=== PATIENT | female | born 1985 | race Caucasian/White ===

== ENCOUNTER 2017-07-14 13:10 | Inpatient (IN) ==
--- NOTE | 2017-07-14 13:28 | Emergency Department Note ---
Disposition Clinical Impression: Ectopic without intrauterine Qualifiers: Location of ectopic : unspecified location Qualified Code(s): O00.90 - Unspecified ectopic without intrauterine Disposition: Admitted As Inpatient Condition: Fair Instructions: Ectopic (ED) Referrals: NONE,PCP [Primary Care Provider] - Jose Patiño [Family Provider] - Forms: ED Satisfaction Letter Time of Disposition: 16:23 Female Urogenital HPI - General Chief complaint: ED Vaginal Bleeding Stated complaint: 10weeks preg/Vag Bleed Time Seen by Provider: 07/14/17 13:21 Source: patient Mode of arrival: ambulatory Limitations: no limitations Nursing Notes Reviewed: Yes Vital Signs Reviewed: Yes - History of Present Illness HPI Narrative: 31-year-old states she is about 9 weeks who developed of bleeding. Patient did have bleeding at 5 weeks was seen at another ER had an ultrasound and is scheduled to follow up with her FAMILY PRACTICE NURSE PRACTITIONER in [place]. Pt Subjective Complaint: vaginal bleeding Onset (ago): hour(s) (This a.m.) Location: suprapubic Radiation: non-radiating Severity: mild Quality: cramping Duration: intermittent Improves with: none Worsens with: none Vaginal discharge: dark blood Sexual activity: yes : yes Associated symptoms: Reports: abnormal vaginal bleeding, abdominal pain - Related Data Allergies Allergy/AdvReac Type Severity Reaction Status Date / Time No Known Allergies Allergy Verified 07/14/17 13:13 All systems ED: reviewed and negative except as stated. Constitutional: Denies: fever, chills, weakness, weight change Eyes: Denies: eye pain, eye discharge, vision change ENT ED: Denies: ear pain, throat pain, dental pain, hearing loss, epistaxis, congestion, dysphagia Cardiovascular: Denies: chest pain, palpitations, dyspnea on exertion, edema, syncope Respiratory: Denies: cough, dyspnea, wheezes, hemoptysis, stridor Gastrointestinal: Reports: abdominal pain. Denies: nausea, vomiting, diarrhea, constipation, hematemesis, melena, hematochezia Genitourinary: Reports: other (Vaginal bleeding). Denies: dysuria, frequency, hematuria, discharge Musculoskeletal: Denies: back pain, neck pain, arthralgia, myalgia Integumentary: Denies: rash, abrasion, lesions Neurological: Denies: headache, weakness, numbness, paresthesias, confusion, abnormal gait, vertigo Psychiatric: Denies: anxiety, depression, suicidal thoughts, homicidal thoughts , auditory hallucinations, visual hallucinations Endocrine: Denies: fatigue Hematological/Lymphatic: Denies: easy bleeding, easy bruising Allergic/Immunologic: Denies: facial swelling, urticaria Past Medical History - Past Medical History Medical history: Reports: no medical history Psychiatric history: Reports: anxiety, depression FAMILY PRACTICE NURSE PRACTITIONER history: Reports: no FAMILY PRACTICE NURSE PRACTITIONER history : 3 Para: 2 Ab: 0 - Social History Smoking Status: Current every day smoker Smokeless Tobacco Status: No Alcohol use: Reports: none Drug use: Reports: none Physical Exam - General Limitations: no limitations General appearance: alert - Head Head exam: atraumatic, normocephalic, normal inspection - Eye Eye exam: Present: normal appearance, PERRL, EOMI - ENT ENT exam: normal exam, normal oropharynx, mucous membranes moist - Neck Neck exam: Present: normal inspection, full ROM, trachea midline - Chest Chest inspection: Present: normal inspection, symmetric chest wall rise - Respiratory Respiratory exam: Present: normal lung sounds bilaterally - Cardiovascular Cardiovascular exam: Present: regular rate, normal rhythm, normal heart sounds - Abdominal Exam Abdominal exam: Present: soft, Non-Tender. Absent: tenderness, distention, guarding, rebound, rigidity - Extremities Exam Extremities exam: Present: normal inspection, full ROM. Absent: tenderness, pedal edema - Expanded Lower Extremity Exam Neurovascular/Tendon exam: Absent: motor deficit, sensory deficit, tendon deficit Gait: observed and normal - Back Exam Back exam: Present: normal inspection, full ROM. Absent: tenderness - Neurological Exam Neurological exam: Present: alert, oriented X3 - Psychiatric Psychiatric exam: Present: normal affect, normal mood - Skin Skin exam: Present: warm, dry, intact, normal color Course - Reevaluation(s) Reevaluation #1: 31-year-old who comes in with bleeding and was found to have a fairly large right adnexal mass with the a ectopic with heartbeat. OB came down and saw the patient they will take her to the OR for surgery. Time: 17:00 - Consultations Consultation #1: Dr Esquivel radiology ectopic on the right. Time: 16:03 Consultation #2: Discussed with Sarah Beth Castillo, admit. Time: 16:05 Consultation #3: RebeccamYing called indicating that Dr. Ramires will be down to see the patient. Time: 16:36 Vital Signs Temperature 98 F 07/14/17 13:13 Pulse Rate 97 07/14/17 13:13 Respiratory Rate 20 07/14/17 13:13 Blood Pressure 112/68 07/14/17 13:13 O2 Sat by Pulse Oximetry 97 07/14/17 13:13 Temperature 98 F 07/14/17 13:13 Pulse Rate 74 07/14/17 16:00 Respiratory Rate 23 07/14/17 16:00 Blood Pressure 99/60 07/14/17 16:00 O2 Sat by Pulse Oximetry 96 07/14/17 16:00 Oxygen Delivery Oxygen Delivery Room Air Urogenital-Female - Lab Data Lab results reviewed: Yes I reviewed the patient's lab results. Result diagrams: 07/14/17 13:38 07/14/17 13:38 Lab Results 07/14/17 07/14/17 07/14/17 Range/Units 13:38 13:38 13:38 WBC 10.8 (4.3-11.1) K/mcL RBC 3.93 (3.82-4.97) M/mcL Hgb 12.2 (11.5-15.4) g/dL Hct 35.0 L (35.3-44.9) % MCV 89.1 (83.0-100.0) fL MCH 31.0 (28.0-33.3) pg MCHC 34.9 (31.6-35.5) g/dL RDW 12.1 (11.5-14.5) % Plt Count 294 (140-400) K/mcL MPV 9.5 (9.4-12.4) fL Immature Gran % 0.4 (0-4) % Seg Neutrophils % 68.7 % Lymphocytes % 24.8 % Monocytes % 3.6 % Eosinophils % 2.0 % Basophils % 0.5 % Neutrophils # 7.5 (1.6-8.9) K/mcL Lymphocytes # 2.7 (0.6-4.6) K/mcL Monocytes # 0.4 (0.0-1.3) K/mcL Eosinophils # 0.2 (0.0-0.6) K/mcL Basophils # 0.1 (0.0-0.2) K/mcL Sodium 136 (136-145) mEq/L Potassium 3.5 (3.5-4.5) mEq/L Chloride 103 (98-109) mEq/L Carbon Dioxide 25 (19-29) mEq/L BUN 13 (7-20) mg/dL Creatinine 0.75 (0.57-1.11) mg/dL Est GFR ( Amer) > 60 (> 60) Est GFR (Non-Af Amer) > 60 (> 60) BUN/Creatinine Ratio 17 (6-26) Glucose 104 H (70-99) mg/dL Calculated Osmolality 282 (280-300) Calcium 9.3 (8.6-10.8) mg/dL Beta HCG, Quant 67974 H (0-4) mIU/ml Urine Color (Yellow) Urine Clarity (Clear) Urine pH (5.0-8.0) pH Units Ur Specific [place] (1.010-1.025) Urine Protein (Neg-Trace) mg/dL Urine Glucose (UA) (Normal) mg/dL Urine Ketones (Negative) mg/dL Urine Blood (Negative) Urine Nitrite (Negative) Urine Bilirubin (Negative) Urine Urobilinogen (Normal) mg/dL Ur Leukocyte Esterase (Negative) Urine Microscopic RBC (0-3) per hpf Urine Microscopic WBC (0-3) per hpf Ur Squamous Epith Cells (None-Few) per lpf Urine Bacteria (None-Few) per hpf Hyaline Casts (None-Few) per lpf Urine Mucus (Few) Ur Culture Indicated? (NO) Blood Type A POSITIVE Antibody Screen NEGATIVE 07/14/17 Range/Units 14:09 WBC (4.3-11.1) K/mcL RBC (3.82-4.97) M/mcL Hgb (11.5-15.4) g/dL Hct (35.3-44.9) % MCV (83.0-100.0) fL MCH (28.0-33.3) pg MCHC (31.6-35.5) g/dL RDW (11.5-14.5) % Plt Count (140-400) K/mcL MPV (9.4-12.4) fL Immature Gran % (0-4) % Seg Neutrophils % % Lymphocytes % % Monocytes % % Eosinophils % % Basophils % % Neutrophils # (1.6-8.9) K/mcL Lymphocytes # (0.6-4.6) K/mcL Monocytes # (0.0-1.3) K/mcL Eosinophils # (0.0-0.6) K/mcL Basophils # (0.0-0.2) K/mcL Sodium (136-145) mEq/L Potassium (3.5-4.5) mEq/L Chloride (98-109) mEq/L Carbon Dioxide (19-29) mEq/L BUN (7-20) mg/dL Creatinine (0.57-1.11) mg/dL Est GFR ( Amer) (> 60) Est GFR (Non-Af Amer) (> 60) BUN/Creatinine Ratio (6-26) Glucose (70-99) mg/dL Calculated Osmolality (280-300) Calcium (8.6-10.8) mg/dL Beta HCG, Quant (0-4) mIU/ml Urine Color Dark Yellow (Yellow) Urine Clarity Cloudy A (Clear) Urine pH 6.5 (5.0-8.0) pH Units Ur Specific [place] 1.030 H (1.010-1.025) Urine Protein 30 H (Neg-Trace) mg/dL Urine Glucose (UA) Normal (Normal) mg/dL Urine Ketones Negative (Negative) mg/dL Urine Blood Large H (Negative) Urine Nitrite Negative (Negative) Urine Bilirubin Negative (Negative) Urine Urobilinogen Normal (Normal) mg/dL Ur Leukocyte Esterase Small H (Negative) Urine Microscopic RBC 30-50 H (0-3) per hpf Urine Microscopic WBC 5-15 H (0-3) per hpf Ur Squamous Epith Cells Few (None-Few) per lpf Urine Bacteria Moderate H (None-Few) per hpf Hyaline Casts None Seen (None-Few) per lpf Urine Mucus Few (Few) Ur Culture Indicated? YES A (NO) Blood Type Antibody Screen - Radiology Data Radiology results reviewed: Yes I reviewed the patient's radiology results. Obstetrics Ultrasound 07/14/17 13:24 IMPRESSION: 8 week 5 day right-sided ectopic with heartbeat. Endometrial cavity appears to be filled with blood. No free pelvic fluid. Adjacent right ovary appears normal. D/ / David Esquivel MD / David Esquivel MD Interpreting Provider: David Esquivel MD Critical Care Time Critical Care Time: Yes Total Critical Care Time: 30 Attestation: The high probability of a clinically significant, sudden or life threatening deterioration of the [reproductive, cardiovascular] system(s) required my full and direct attention, intervention and personal management. The aggregate critical care time was [30] minutes. This time is in addition to time spent performing reported procedures but includes the following: [x] Data Review and interpretation [x] Patient assessment and monitoring of vital signs [x] Documentation [x] Medication orders and management
[2017-07-14 13:50] LABS: Basophils # 0.1 K/mcL (0.0-0.2); Basophils % 0.5 %; Eosinophils # 0.2 K/mcL (0.0-0.6); Hemoglobin 12.2 g/dL (11.5-15.4); Immature Granulocytes % 0.4 % (0-4); Lymphocytes # 2.7 K/mcL (0.6-4.6); Lymphocytes % 24.8 %; Mean Corpuscular HGB Conc 34.9 g/dL (31.6-35.5); Mean Corpuscular Volume 89.1 fL (83.0-100.0); Mean Platelet Volume 9.5 fL (9.4-12.4); Monocytes # 0.4 K/mcL (0.0-1.3); Monocytes % 3.6 %; Neutrophils # 7.5 K/mcL (1.6-8.9); Platelet Count 294 K/mcL (140-400); Red Blood Count 3.93 M/mcL (3.82-4.97); Red Cell Distribution Width 12.1 % (11.5-14.5); Segmented Neutrophils % 68.7 %
[2017-07-14 13:59] LABS: BUN/Creatinine Ratio 17 (6-26); Blood Urea Nitrogen 13 mg/dL (7-20); Calcium 9.3 mg/dL (8.6-10.8); Carbon Dioxide 25 mEq/L (19-29); Chloride 103 mEq/L (98-109); Glucose 104 mg/dL (70-99); Osmolality,Calculated 282 (280-300); Potassium 3.5 mEq/L (3.5-4.5); Sodium 136 mEq/L (136-145); eGFR For African Americans > 60 (> 60); eGFR For Non-African Americans > 60 (> 60)
[2017-07-14 14:15] LABS: Bilirubin,Urine Negative (Negative); Blood,Urine Large (Negative); Clarity,Urine Cloudy (Clear); Color,Urine Dark Yellow (Yellow); Glucose,Urine (UA) Normal (Normal); Ketones,Urine Negative (Negative); Leukocyte Esterase,Urine Small (Negative); Nitrite,Urine Negative (Negative); PH,Urine 6.5 pH Units (5.0-8.0); Protein,Urine 30 mg/dL (Neg-Trace); Urobilinogen,Urine Normal (Normal)
[2017-07-14 14:17] LABS: Hyaline Casts,Urine None Seen per lpf (None-Few)
[2017-07-14 14:35] LABS: Bacteria,Urine Moderate per hpf (None-Few); Squamous Epithelial Cell,Urine Few per lpf (None-Few)
[2017-07-14 14:36] LABS: RBC,Urine 30-50 per hpf (0-3)
[2017-07-14 14:37] LABS: Mucus,Urine Few (Few)
--- NOTE | 2017-07-14 17:13 | Anesthesia Evaluation PreOp ---
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") Medications and Allergies 3 Allergy/AdvReac Type Severity Reaction Status Date / Time No Known Allergies Allergy Verified 07/14/17 13:13 - Meds/Allergy Pre-op Review Medications Reviewed: Yes Allergies Reviewed: Yes Beta Blockers on Current Med List: No Anesthesia Results - Labs 07/14/17 13:38 07/14/17 13:38 Laboratory Results WBC 10.8 K/mcL (4.3-11.1) 07/14/17 13:38 RBC 3.93 M/mcL (3.82-4.97) 07/14/17 13:38 Hgb 12.2 g/dL (11.5-15.4) 07/14/17 13:38 Hct 35.0 % (35.3-44.9) L 07/14/17 13:38 MCV 89.1 fL (83.0-100.0) 07/14/17 13:38 MCH 31.0 pg (28.0-33.3) 07/14/17 13:38 MCHC 34.9 g/dL (31.6-35.5) 07/14/17 13:38 RDW 12.1 % (11.5-14.5) 07/14/17 13:38 Plt Count 294 K/mcL (140-400) 07/14/17 13:38 MPV 9.5 fL (9.4-12.4) 07/14/17 13:38 Immature Gran % 0.4 % (0-4) 07/14/17 13:38 Seg Neutrophils % 68.7 % 07/14/17 13:38 Lymphocytes % 24.8 % 07/14/17 13:38 Monocytes % 3.6 % 07/14/17 13:38 Eosinophils % 2.0 % 07/14/17 13:38 Basophils % 0.5 % 07/14/17 13:38 Neutrophils # 7.5 K/mcL (1.6-8.9) 07/14/17 13:38 Lymphocytes # 2.7 K/mcL (0.6-4.6) 07/14/17 13:38 Monocytes # 0.4 K/mcL (0.0-1.3) 07/14/17 13:38 Eosinophils # 0.2 K/mcL (0.0-0.6) 07/14/17 13:38 Basophils # 0.1 K/mcL (0.0-0.2) 07/14/17 13:38 Sodium 136 mEq/L (136-145) 07/14/17 13:38 Potassium 3.5 mEq/L (3.5-4.5) 07/14/17 13:38 Chloride 103 mEq/L (98-109) 07/14/17 13:38 Carbon Dioxide 25 mEq/L (19-29) 07/14/17 13:38 BUN 13 mg/dL (7-20) 07/14/17 13:38 Creatinine 0.75 mg/dL (0.57-1.11) 07/14/17 13:38 Est GFR ( Amer) > 60 (> 60) 07/14/17 13:38 Est GFR (Non-Af Amer) > 60 (> 60) 07/14/17 13:38 BUN/Creatinine Ratio 17 (6-26) 07/14/17 13:38 Glucose 104 mg/dL (70-99) H 07/14/17 13:38 Calculated Osmolality 282 (280-300) 07/14/17 13:38 Calcium 9.3 mg/dL (8.6-10.8) 07/14/17 13:38 Beta HCG, Quant 68581 mIU/ml (0-4) H 07/14/17 13:38 Urine Color Dark Yellow (Yellow) 07/14/17 14:09 Urine Clarity Cloudy (Clear) A 07/14/17 14:09 Urine pH 6.5 pH Units (5.0-8.0) 07/14/17 14:09 Ur Specific [place] 1.030 (1.010-1.025) H 07/14/17 14:09 Urine Protein 30 mg/dL (Neg-Trace) H 07/14/17 14:09 Urine Glucose (UA) Normal mg/dL (Normal) 07/14/17 14:09 Urine Ketones Negative mg/dL (Negative) 07/14/17 14:09 Urine Blood Large (Negative) H 07/14/17 14:09 Urine Nitrite Negative (Negative) 07/14/17 14:09 Urine Bilirubin Negative (Negative) 07/14/17 14:09 Urine Urobilinogen Normal mg/dL (Normal) 07/14/17 14:09 Ur Leukocyte Esterase Small (Negative) H 07/14/17 14:09 Urine Microscopic RBC 30-50 per hpf (0-3) H 07/14/17 14:09 Urine Microscopic WBC 5-15 per hpf (0-3) H 07/14/17 14:09 Ur Squamous Epith Cells Few per lpf (None-Few) 07/14/17 14:09 Urine Bacteria Moderate per hpf (None-Few) H 07/14/17 14:09 Hyaline Casts None Seen per lpf (None-Few) 07/14/17 14:09 Urine Mucus Few (Few) 07/14/17 14:09 Ur Culture Indicated? YES (NO) A 07/14/17 14:09 Blood Type A POSITIVE 07/14/17 13:38 Antibody Screen NEGATIVE 07/14/17 13:38 Impressions Obstetrics Ultrasound 07/14/17 13:24 IMPRESSION: 8 week 5 day right-sided ectopic with heartbeat. Endometrial cavity appears to be filled with blood. No free pelvic fluid. Adjacent right ovary appears normal. D/ / David Esquivel MD / David Esquivel MD Interpreting Provider: David Esquivel MD Anesthesia Exam Vital Signs Temp Pulse Resp BP Pulse Ox 07/14/17 16:00 74 23 99/60 96 07/14/17 13:13 98 F 97 20 112/68 97 Intake and Output 07/14/17 07/14/17 07/14/17 07:59 15:59 23:59 Other: Weight 73.301 kg Patient Weight 07/14/17 23:59 Weight 73.301 kg Height: 5'1" Weight: 161# BMI = 31 - HEENT Pupil (Motor): Pupils equal, EOMI Mallampati: II Teeth: Poor dentition (multiple broken off, missing, abcessed teeth) Oral Opening: Greater than 3 - ICE GUARD TESTER LOC: Oriented ICE GUARD TESTER Motor: Normal RUE, Normal LUE, Normal RLE, Normal LLE, Normal Face ICE GUARD TESTER Sensory: Normal: RUE, LUE, RLE, LLE, Face - Cardiac Rhythm: Regular Murmur: None - Pulmonary Breath Sounds: bilateral Clear Respiratory Effort: Symmetrical Anesthesia Assess/Plan ASA Score: 3 (Hx IVDA, Smoker, 10week Ectopic w/ heartbeat), E Modified Adan Scale for Level of Consciousness: Cooperative, oriented, and tranquil Anesthetic Plan: General Monitoring Plan: Standard Monitors Recovery Plan: PACU Anes Supervising Prov Stmt: Pt seen/evaluated, R&B discussed, questions answered and consent obtained. Scarlett Jackson MD
[2017-07-14] MEDS ORDERED: *HR* FentaNYL (PF) 100 MCG/2 ML VIAL ONE ×2 (17:27→18:44)
[2017-07-14] MEDS ORDERED: Lidocaine -MPF 2% 2 ML VIAL ONE (17:27)
[2017-07-14] MEDS ORDERED: *HR* Propofol 200 MG/20 ML VIAL IVP ONE (17:27)
[2017-07-14] MEDS ORDERED: *HR* Midazolam HCl 2 MG/2 ML VIAL ONE (17:27)
[2017-07-14] MEDS ORDERED: *HR* Succinylcholine 200 MG/10 ML VIAL IVP ONE (17:27)
--- NOTE | 2017-07-14 17:27 | OB/GYN History & Physical ---
Date of Encounter: 07/14/17 Time of Encounter: 17:24 Assessment and Plan (1) Ectopic without intrauterine Current visit: Yes Status: Acute I went in to see the patient and reviewed the TVUS report with her and her partner, I counseled her that she will need surgery given the size and +heart beat Initially I thought about doing laparoscopy but she already has a C/S scar and with the possibility of encountering bleeding requiring laparotomy, she opted to go for Laparotomy, patient to be admitted for observation after surgery, I have spoken to the OR and patient added on, All questions answered. Qualifiers: Location of ectopic : unspecified location Qualified Code(s): O00.90 - Unspecified ectopic without intrauterine History of Present Illness HPI: Ms. Mendez is a 31 year old female @ 10+ weeks who presented to the ER with comaplinats of vaginal bleeding and slight abd pain. She reports that she has been having this pain x 2 weeks. TVUS done in the ED showed a 10week in the R adnexa with a heart beat. She does not report severe pelvic pain, nausea, vomiting, no other urinary or GI symptoms. Past Med Surg Social Fam HX - Past Medical History Medical history: no medical history Psychiatric history: anxiety, depression - Social History Smoking Status: Current every day smoker Smokeless Tobacco Status: No Alcohol use: none Drug use: none, IV Drug Use (currently on Suboxone) Obstetrical History - Pregnancies : 3 Para: 2 Livin Medications and Allergies 3 Allergy/AdvReac Type Severity Reaction Status Date / Time No Known Allergies Allergy Verified 07/14/17 13:13 Review of System OB ROS unobtainable: due to endotracheal tube All systems PM: reviewed and no additional remarkable complaints except as stated Exam - Vital Signs Vital signs: Initial Vital Signs Temp Pulse Resp BP Pulse Ox 98 F 97 20 112/68 97 07/14/17 13:13 07/14/17 13:13 07/14/17 13:13 07/14/17 13:13 07/14/17 13:13 - Constitutional Constitutional: well developed - HEENT HEENT: PERRL - Neck Neck exam: full ROM - Lungs Respiratory exam: CTAB - Cardiovascular Cardiovascular exam: RRR - Abdomen Abdomen: Present: bowel sounds normal, non tender Results Result Diagrams: 07/14/17 13:38 07/14/17 13:38 Abnormal lab results Hct 35.0 % (35.3-44.9) L 07/14/17 13:38 Glucose 104 mg/dL (70-99) H 07/14/17 13:38 Beta HCG, Quant 69347 mIU/ml (0-4) H 07/14/17 13:38 Urine Clarity Cloudy (Clear) A 07/14/17 14:09 Ur Specific [place] 1.030 (1.010-1.025) H 07/14/17 14:09 Urine Protein 30 mg/dL (Neg-Trace) H 07/14/17 14:09 Urine Blood Large (Negative) H 07/14/17 14:09 Ur Leukocyte Esterase Small (Negative) H 07/14/17 14:09 Urine Microscopic RBC 30-50 per hpf (0-3) H 07/14/17 14:09 Urine Microscopic WBC 5-15 per hpf (0-3) H 07/14/17 14:09 Urine Bacteria Moderate per hpf (None-Few) H 07/14/17 14:09 Ur Culture Indicated? YES (NO) A 07/14/17 14:09 All other labs normal.
[2017-07-14] MEDS ORDERED: *HR* Rocuronium Bromide 50 MG/5 ML VIAL ONE (17:28)
[2017-07-14] MEDS ORDERED: Ondansetron 4 MG/2 ML VIAL IVP PRN (17:35)
[2017-07-14] MEDS ORDERED: Ringers Solution, Lactated 1,000 ML IVC SCH (17:45)
[2017-07-14] MEDS ORDERED: Metoclopramide 10 MG/2 ML VIAL ONE (18:04)
[2017-07-14] MEDS ORDERED: Famotidine 20 MG/2 ML VIAL ONE ×2 (18:06→18:11)
[2017-07-14] MEDS ORDERED: Scopolamine Patch 1.5 MG PATCH.TD72 ONE (18:14)
[2017-07-14] MEDS ORDERED: Dexamethasone 4 MG/ML VIAL ONE (18:53)
[2017-07-14] MEDS ORDERED: Ketorolac 30 MG/ML VIAL ONE (18:53)
[2017-07-14] MEDS ORDERED: Ondansetron 4 MG/2 ML VIAL ONE (18:53)
[2017-07-14] MEDS ORDERED: *HR* HYDROmorphone 2 MG/ML SYRINGE ONE ×2 (18:57→19:56)
[2017-07-14] MEDS ORDERED: Neostigmine Methylsulfate 3 MG/3 ML SYRINGE ONE (19:33)
[2017-07-14] MEDS ORDERED: Ketamine *HR* 500 MG/10 ML MDV ONE (20:01)
[2017-07-14] MEDS ORDERED: Acetaminophen IV 1,000 MG/100 ML INFUS..BTL ONE (20:02)
[2017-07-14] MEDS ORDERED: *HR* Meperidine 25 MG/ML SYRINGE ONE (20:08)
[2017-07-14] MEDS ORDERED: Albuterol 2.5 MG/3 ML NEBULIZER IH ONE (20:11)
[2017-07-14] MEDS ORDERED: *HR* Promethazine 25 MG/ML VIAL IVP PRN (20:11)
[2017-07-14] MEDS ORDERED: *HR* Meperidine 25 MG/ML SYRINGE IVP PRN (20:11)
[2017-07-14] MEDS ORDERED: *HR* HYDROmorphone (PF) 1 MG/ML SYRINGE IVP PRN (20:11)
--- NOTE | 2017-07-14 20:52 | Anesthesia Evaluation Post Op ---
Date of Encounter: 07/14/17 Time of Encounter: 20:51 - Vital Signs Vital Signs: Last Vital Signs Temp 99.3 F 07/14/17 20:30 Pulse 71 07/14/17 20:30 Resp 16 07/14/17 20:30 BP 112/68 07/14/17 20:30 Pulse Ox 94 07/14/17 20:30 - Lungs Lungs: Clear Ascult./Percussion - Airway Airway: Non-obstructed - Cardiovascular Regular Rate - Mental Status Mental Status: Alert & Oriented, Answers Appropriately - Pain Pain Scale: 5 - Nausea Vomiting Nausea Vomiting: Not Present - Hydration Hydration: Ice chips - Discharge PostOp Status: Transfer Patient to floor
[2017-07-14] MEDS: Ketorolac 30 MG/ML VIAL IVP PRN (21:36)
[2017-07-14] MEDS ORDERED: *HR* Promethazine 25 MG/ML VIAL IVP ONE (21:43)
[2017-07-14] MEDS: *HR* OxyCODONE/APAP 5/325 TABLET PO PRN (21:46)
[2017-07-14] MEDS ORDERED: *HR* HYDROmorphone 2 MG/ML SYRINGE IVP ONE (21:49)
[2017-07-15] MEDS: *HR* OxyCODONE/APAP 5/325 TABLET PO PRN ×5 (02:50→20:16)
[2017-07-15] MEDS: Ibuprofen 600 MG TABLET PO PRN ×3 (06:27→20:16)
[2017-07-15 06:28] LABS: Basophils % 0.1 %; Hematocrit 32.4 % (35.3-44.9); Hemoglobin 11.4 g/dL (11.5-15.4); Immature Granulocytes % 0.3 % (0-4); Lymphocytes # 1.1 K/mcL (0.6-4.6); Lymphocytes % 7.2 %; Mean Corpuscular HGB Conc 35.2 g/dL (31.6-35.5); Mean Platelet Volume 10.1 fL (9.4-12.4); Monocytes # 0.3 K/mcL (0.0-1.3); Neutrophils # 13.8 K/mcL (1.6-8.9); Platelet Count 280 K/mcL (140-400); Red Blood Count 3.68 M/mcL (3.82-4.97); Red Cell Distribution Width 12.1 % (11.5-14.5); Segmented Neutrophils % 90.4 %
--- NOTE | 2017-07-15 07:28 | OB/GYN Procedure Note ---
OB-TOW DRIVER: Procedure - Diagnosis Date of procedure: 07/15/17 Pre-op diagnosis: Ectopic Post-op diagnosis: same - Procedure Procedure: Ex Lap, removal of ectopic fetus, right salpingo-oophorectomy Surgeon: Rachid Ramires Anesthesia Type: General Estimated blood loss (cc): 150 Fluids: crystalloid Procedure Complications: none Specimens collected: ectopic fetus, right ovary and tube Disposition: floor Findings: large ectopic fetus embedded in the right tube affixed to the right ovary, normal looking left ovary and tube Narrative: The patient was prepped and draped in the usual sterile fashion. An incision was made into the abdomen down through the subcutaneous tissue, muscular fascia and peritoneum. Once inside the abdominal cavity, I explored the abdominal cavity and located the ectopic fetus in the right tube and ovary. The ectopic fetus was adherent to the right ovary. With the Ligasure device, I located the IP ligament and amputated the ovary and tube with the ectopic fetus. The site was hemostatic. The specimen was handed over to the nurses. The patient tolerated the operation nicely. There were no complications associated with this surgical procedure to this point. The sponge count was correct times 2 at this time. Having removed all instruments and packs, I then began closure of the abdomen. The fascia was closed with #0 Vicryl in a running continuous manner and the subcutaneous tissue was also closed with 3-0 Vicryl in interrupted manner. The skin was closed with #4-0 vicryl. The patient tolerated the operation nicely and was then taken to the Recovery Room in good condition.
[2017-07-15] MEDS: Ketorolac 30 MG/ML VIAL IVP PRN (08:06)
[2017-07-16] MEDS: *HR* OxyCODONE/APAP 5/325 TABLET PO PRN ×3 (00:11→08:47)
[2017-07-16] MEDS: Ibuprofen 600 MG TABLET PO PRN (03:20)
--- NOTE | 2017-07-16 08:02 | Discharge Summary ---
Date of Encounter: 07/16/17 Time of Encounter: 08:03 - Discharge Diagnosis (1) Ectopic without intrauterine Priority: Primary Status: Acute Comments: patient seen today, was sleeping comfortably, doing well, pain is under control, ok for discharge Qualifiers: Location of ectopic : unspecified location Qualified Code(s): O00.90 - Unspecified ectopic without intrauterine - Discharge Medications Allergies/Adverse Reactions: 3 Allergy/AdvReac Type Severity Reaction Status Date / Time No Known Allergies Allergy Verified 07/14/17 13:13 Date of admission: 07/15/17 09:23 Primary care physician: PCP NONE - Patient Status Disposition: Home, Self-Care Condition: Good Functional capacity at discharge: independent ambulation Overall status at discharge: patient is progressing back to baseline - Discharge Instructions Instructions: Ectopic (DC) Follow Up With: NONE,PCP [Primary Care Provider] - Jose Patiño [Family Provider] - Hospital Course CODING COORDINATOR Time Attestation: Total time spent providing and/or coordinating discharge services: Exam - Constitutional Vitals: Temp Pulse Resp BP Pulse Ox 97.9 F 73 18 89/55 97 07/16/17 03:33 07/16/17 03:33 07/16/17 03:33 07/16/17 03:33 07/16/17 03:33 General appearance IM: A&O X 3 - Respiratory Respiratory exam: Present: CTAB - Cardiovascular Cardiovascular exam IM: Present: RRR - GI/Abdominal GI/Abdominal exam IM: normal bowel sounds Incision: normal - External exam: normal external exam - VTE Documentation of Mechanical Device: Intermittent pneumatic compression device
[2017-07-16 08:31] VITALS: BP 106/54
== END 2017-07-16 09:14 | disposition home or self-care (01) | DRG 545 ==
LOC: EMEROO 13:10 → 1NENUOBS 13:10 → EMEROO 14:46 → 1NENUOBS 18:18
PROVIDERS: ADMIT Student in an Organized Health Care Education/Training Program; ATTEND Student in an Organized Health Care Education/Training Program